=== PATIENT | female | born 1985 | race Caucasian/White ===

== ENCOUNTER 2016-10-06 14:05 | Day surgery (SDC) | payer OTHER ==
[~2016-10-06] VITALS: Ht 162.6 cm; Wt 54.4 kg
[2016-10-06] MEDS ORDERED: LYSINE (15:25)
[2016-10-06] MEDS ORDERED: GLUCOSAMINE (15:25)
[2016-10-06 16:15] VITALS: BP 103/56; PULSE 62; RESP 22
[2016-10-06] MEDS ORDERED: PROPOFOL 60 ML ONE (16:33)
[2016-10-06] MEDS ORDERED: LIDOCAINE 2% (SDV) 5 ML INJ ONE (16:33)
[2016-10-06] MEDS ORDERED: LIDOCAINE 100 MG SYRINGE ONE (16:38)
--- NOTE | 2016-10-06 16:59 | OPPN ---
Date/Time of Note Date/Time of Note DATE: 10/06/16 TIME: 16:55 Proc Note GI Free Text/Dictation Procedure Date: 10/06/1971 Preoperative Diagnosis: * Hematochezia Postoperative Diagnosis: * Normal colonic mucosa to cecum * Moderate-sized internal hemorrhoids Plan: * Conservative management of hemorrhoidal disease * Follow-up as previously scheduled * Colonoscopy at age 48 Procedure Performed: Colonoscopy to cecum Surgeon: Carolyn Waldrop MD Blowing Weasand: None Second Manager Medical: None Anesthesia/Sedation MAC per anesthesiologist Tourniquet Time: NA Estimated Blood Loss: 0 Transfusion Required: No Specimens: None Grafts/Implants: None Tubes/Drains: NA Complications: None Pt. Condition Post Procedure: Stable Disposition: Home After informed consent, with the patient/relatives understanding the procedure, its indications and potential risks and complications, including but not limited to: Allergic reaction, bleeding, perforation, infection, and after all pertinent questions were answered to the patient's satisfaction, the patient/ relatives signed the witnessed informed consent. Following this, premedication was administered slowly IV push under careful cardiovascular and respiratory monitoring with pulse OXIMETRY, automatic blood pressure, and lehr stripper. Once the sedative effect was achieved, the patient was placed in the left lateral decubitus position, digital rectal examination was performed. The colonoscope was then introduced and advanced under visual control throughout all segments of the colon including: []the rectum, sigmoid, descending colon, splenic flexure, transverse colon, hepatic flexure, ascending colon and finally reaching the cecum which was clearly identified by transillumination, finger indentation and the ileocecal valve. Careful examination of the mucosa of the lower gastrointestinal tract both on insertion as well as withdrawal of the instrument disclosed the following findings: PREPARATION QUALITY: [Adequate], [fair, procedure completed] RECTAL EXAM: The anorectal area was visualized examined and digital rectal examination performed with the following findings: []No evidence of perirectal disease, no masses. COLONIC MUCOSA: The mucosa of all segments of the colon was carefully examined and showed the following findings: []the examined mucosa appears within normal limits. There is no evidence of inflammatory changes, diverticular formation, polyps or other neoplasms, vascular malformation, or any other abnormality. The instrument was then withdrawn, the patient tolerated the procedure well and was transferred out of the Endoscopy Suite awake and in good condition to continue recovery under observation. Procedure date: Oct 06, 2016 CAROLYN WALDROP MD Oct 06, 2016 16:59
[2016-10-06 17:20] VITALS: BP 102/65; PULSE 70; RESP 14
== END 2016-10-06 17:17 | disposition home or self-care (01) ==
LOC: GIL 14:05
PROVIDERS: ATTEND Internal Medicine Gastroenterology
DX: K92.1 Melena (principal)
CPT/HCPCS: 45378; J2001; Z7610